=== PATIENT | male | born 1980 | race Caucasian/White ===

== ENCOUNTER 2016-09-12 12:18 | Emergency (ER) | payer SELFPAY ==
[2016-09-12 12:35] VITALS: BP 136/84
[2016-09-12] MEDS ORDERED: CYCL10TA2 PO (13:12)
--- NOTE | 2016-09-12 13:12 | PHYS DOC ---
Past Medical History Past Medical History: Other Additional Past Medical Histor: chronic back pain, hypoglyceimia Past Surgical History: Other Additional Past Surgical Histo: Arm Alcohol Use: None Drug Use: None Adult General Chief Complaint Chief Complaint: LOWER BACK PAIN OR INJURY [facility] HPI Patient is a 36 year old male since emergency department stating that he tweaked his back 2 days ago. Patient states that he was moving a refrigerator for friend and he felt something pull in his back. Patient states that he had seen his primary care physician on Thursday for the back pain and discomfort. He states the primary care physician gave him a steroid injection and provided him with hydrocodone. Patient states the pain has become worse and radiates down into his leg. Patient states that he drove himself here to the emergency department. Patient states that he has numbness and tingling down to his right leg. He states that he has increased pain with trying to sit. He states he has not taken any ibuprofen nor has he placed any ice packs on the area. Patient states that he was at his primary care physician today and they sent him here to have an MRI completed. Patient denies any loss of bowel or bladder. Review of Systems Review of Systems Constitutional: Denies fever or chills [] Eyes: Denies change in visual acuity, redness, or eye pain [] HENT: Denies nasal congestion or sore throat [] Respiratory: Denies cough or shortness of breath [] Cardiovascular: No additional information not addressed in HPI [] GI: Denies abdominal pain, nausea, vomiting, bloody stools or diarrhea [] : Denies dysuria or hematuria [] Musculoskeletal: right lower back pain denies joint pain Integument: Denies rash or skin lesions [] Neurologic: Denies headache, focal weakness or sensory changes [] Endocrine: Denies polyuria or polydipsia [] Allergies Allergies Allergies Coded Allergies Type Severity Reaction Last Updated Verified latex Allergy Unknown 11/03/14 No Physical Exam Physical Exam Constitutional: Well developed, well nourished, no acute distress, non-toxic appearance. [] HENT: Normocephalic, atraumatic, bilateral external ears normal, oropharynx moist, no oral exudates, nose normal. [] Eyes: PERRLA, EOMI, conjunctiva normal, no discharge. [] Neck: Normal range of motion, no tenderness, supple, no stridor. [] Cardiovascular:Heart rate regular rhythm, no murmur [] Lungs & Thorax: Bilateral breath sounds clear to auscultation [] Abdomen: Bowel sounds normal, soft, no tenderness, no masses, no pulsatile masses. [] Skin: Warm, dry, no erythema, no rash. [] Back: No thoracic, no lumbar spine tenderness noted. No crepitus no deformities and no step-offs noted. Patient did have tenderness right lower back area.] Extremities: No tenderness, no cyanosis, no clubbing, ROM intact, no edema. Peripheral pulses 2+. Patient with good strength in both extremities. Patient able to ambulate with a good steady gait. Neurologic: Alert and oriented X 3, normal motor function, normal sensory function, no focal deficits noted. [] Psychologic: Affect normal, judgement normal, mood normal. [] Current Patient Data Vital Signs Vital Signs Date Time Temp Pulse Resp B/P (MAP) Pulse Ox O2 Delivery O2 Flow Rate FiO2 09/12/16 12:35 98.1 102 20 93 Room Air 98.1 EKG EKG [] Radiology/Procedures Radiology/Procedures [] Course & Med Decision Making Course & Med Decision Making Pertinent Labs and Imaging studies reviewed. (See chart for details) Patient will be discharged home with Flexeril which she was instructed will cause drowsiness do not take sleepy alert and oriented. Patient will be instructed to use ibuprofen 800 mg every 8 hours with food stop taking few develop an upset stomach. Patient has hydrocodone at home in which she can use for severe pain and discomfort. Recommended ice packs on 20 minutes off 20 minutes several times a day. Also recommended following back up with her primary care physician to provide physical therapy recommendations. Patient will be discharged home in stable condition. Signs and symptoms to return back to emergency department as been provided. [] Dragon Disclaimer Dragon Disclaimer This electronic medical record was generated, in whole or in part, using a voice recognition dictation system. Departure Departure Impression: Primary Impression: Lower back pain Disposition: 01 HOME, SELF-CARE Condition: STABLE Referrals: JOSÉ MIGUEL CHRIS MD (PCP) Patient Instructions: Back Pain, Adult, [id number] Additional Instructions: You have been evaluated for your back pain. No x-rays were needed as she did not have pain or discomfort on the spinal column. Ibuprofen 800 mg every 8 hours with food stop taking few develop an upset stomach. Ice packs on 20 minutes off 20 minutes several times today. Flexeril will cause drowsiness do not take any be alert and oriented. Followup with your primary care provider in 3-5 days Return to emergency department as needed for signs and symptoms that become worse. Scripts Cyclobenzaprine Hcl (CYCLOBENZAPRINE HCL) 10 Mg Tablet 10 MG PO TID, #30 TAB Prov: KAMRAN BARRETT APRN 09/12/16 KAMRAN BARRETT APRN Sep 12, 2016 13:12
== END 2016-09-12 13:19 | disposition home or self-care (01) ==
LOC: ER 12:18
DX: M54.5 Low back pain (principal); G89.29 Other chronic pain; R20.0 Anesthesia of skin; R20.2 Paresthesia of skin; Z91.040 Latex allergy status
CPT/HCPCS: 99283

== ENCOUNTER → 2016-09-25 | Outpatient (CLI) | payer BC ==
[2016-09-12 12:35] VITALS: BP 136/84
[~2016-09-25] MED LIST: CYCL10TA2 PO; CYCL5TAB PO; DOCU-109 PO; OXYC-323 PO
[2016-09-25 14:16] LABS: BASO # 0.1 x10^3/uL (0.0-0.2); BASO % 2 % (0-3); EOS % 2 % (0-3); HEMOGLOBIN 15.3 g/dL (13.0-17.5); LYMPH # 2.2 x10^3/uL (1.0-4.8); LYMPH % 38 % (24-48); MEAN CORPUSCULAR HEMOGLOBIN 31 pg (25-35); MEAN CORPUSCULAR HGB CONC 34 g/dL (31-37); MEAN CORPUSCULAR VOLUME 90 fL (79-100); MONO % 8 % (0-9); NEUT % 51 % (31-73); PLATELET COUNT 228 x10^3/uL (140-400); RED CELL DISTRIBUTION WIDTH 13.3 % (11.5-14.5); WHITE BLOOD COUNT 5.9 x10^3/uL (4.0-11.0)
[2016-09-25 14:20] LABS: ALBUMIN 4.4 g/dL (3.4-5.0); ALBUMIN/GLOBULIN RATIO 1.3 (1.0-1.7); CALCIUM 9.5 mg/dL (8.5-10.1); CREATININE 1.1 mg/dL (0.7-1.3); GFR 76.2; POTASSIUM 4.5 mmol/L (3.5-5.1); TOTAL BILIRUBIN 0.6 mg/dL (0.2-1.0); TOTAL PROTEIN 7.8 g/dL (6.4-8.2)
== END | disposition home or self-care (01) ==
LOC: SURGPAT 13:32
PROVIDERS: ATTEND Neurological Surgery
DX: Z01.818 Encounter for other preprocedural examination (principal)
CPT/HCPCS: 36415; 80053; 85027; 87641

== ENCOUNTER 2016-09-26 09:50 | Day surgery (SDC) | payer BC ==
--- NOTE | 2016-09-25 17:23 | HP ---
ADMIT DATE: 09/26/2016 PREOPERATIVE HISTORY AND PHYSICAL DATE OF SURGERY: 09/26/2016. James Medina dictating for Dr. Geronimo Ruvalcaba. HISTORY OF PRESENT ILLNESS: The patient is a pleasant 36-year-old who is having difficulty with low back pain and pain which radiates into his right hip, right posterolateral thigh, leg and foot. He says his right leg feels numb. The problem began 3 weeks ago after moving a refrigerator. He says his pain is a 10/10. He has been off work for 2 weeks. His pain is constant. He says that the problem is worse with sitting, standing or walking. He says he gets minimal relief with lying down flat with a pillow under his back. He has been taking hydrocodone, Motrin, and Tylenol, which he says are not helping him significantly. PAST MEDICAL HISTORY: Hypoglycemia and back pain. PAST SURGICAL HISTORY: Right arm nerve surgery 10 years ago. FAMILY HISTORY: Diabetes, hypertension, migraine, spine problems. SOCIAL HISTORY: He is a current smoker. He smokes a pack a day. He is employed. ALLERGIES: . CURRENT MEDICATIONS: [place], Motrin and Tylenol. REVIEW OF SYSTEMS: A 12-point review of systems was obtained and is noncontributory except for that mentioned above. PHYSICAL EXAMINATION: NEUROSURGERY EXAMINATION: GENERAL APPEARANCE: Alert, in distress related to back and right leg pain. He had to stand for most of the interview, when sitting he was leaning to the left. HEAD: Normocephalic and atraumatic. SKIN: Warm and dry. MUSCULOSKELETAL: Lumbar paraspinal muscle bulk is normal, restricted range of motion of lumbar spine, [id number] tenderness of lower lumbar spine with palpation, normal range of motion of the lower extremities bilaterally. EXTREMITIES: No clubbing, cyanosis, or edema. NEUROLOGIC: Alert and oriented x 3, normal recent and remote memory, strength 5/5 in bilateral lower extremities, sensory was intact to light touch in the bilateral lower extremities except decreased sensation in the right S1 distribution, reflexes were present and symmetric in lower extremities bilaterally except for an absent right ankle jerk, positive straight leg raising on the right at 5 degrees, positive crossed leg raising on the left at 5 degrees, antalgic gait. IMAGING: Reviewed. I reviewed a lumbar MRI scan. There is a large right-sided extruded disk with compression of the right S1 nerve root. ASSESSMENT: Intervertebral disk disorders with radiculopathy, lumbosacral region. PLAN: He has a large herniated disk at L5-S1 on the right with nerve root compression. His pain is severe with neurologic changes on exam. I recommended a lumbar microdiskectomy at L5-S1 on the right. I spoke with him about the surgery including the technique, risks, and expected postoperative course. He understands and would like to proceed. We will make the arrangements. GERONIMO RUVALCABA MD DR: ARIS/pranav JOB#: [id number] / [id number]
[~2016-09-26 09:50] MED LIST changes: +BACITRACIN 50,000 UNIT in IV NORMAL SALINE 1000ML BAG 1,000 ML IRR ONE; +BUPIVACAINE-EPI 0.25%-1:200000 MPF 30 ML VIAL. ONE; -CYCL5TAB PO; -DOCU-109 PO; +GELATIN SPONGE SIZE 100. ONE; +HYDROmorphone 2 MG/ML VIAL IV PRN; +IV RINGERS,LACTATED 1000ML 1,000 ML IV SCH; +KETOROLAC 60 MG/2 ML INJ FOR OR. ONE; +LIDOCAINE 1% 1 ML SYRINGE. ID PRN; +MEPERIDINE PF 25 MG/ML VIAL. IV PRN; +MIDAZOLAM HCL/PF 2 MG/2 ML VIAL. IV PRN; +MORPHINE SULFATE 4 MG/ML DISP.SYRIN. IV PRN; +PROCHLORPERAZINE 10 MG/2 ML VIAL. IV PRN; +THROMBIN TOPICAL 20,000 UNIT SPRAY.SYRN KIT TP ONE; +diphenhydrAMINE 50 MG/ML VIAL IV PRN; +fentaNYL PF VIAL 100 MCG/2 ML VIAL IV PRN
[2016-09-26] MEDS ORDERED: ROCURONIUM 50 MG/5 ML VIAL. ONE (10:23)
[2016-09-26] MEDS ORDERED: DEXAMETHASONE SOD PHOS 20 MG/5 ML VIAL. ONE (10:24)
[2016-09-26] MEDS ORDERED: PROPOFOL 20 ML IV ONE (10:24)
[2016-09-26] MEDS ORDERED: ePHEDrine PF IN SALINE 50 MG/5 ML DISP.SYRIN IV ONE (10:24)
[2016-09-26] MEDS ORDERED: LIDOCAINE 2% PF Vial for OR 5 ML VIAL. ONE (10:24)
[2016-09-26] MEDS ORDERED: ONDANSETRON PF 4 MG/2 ML VIAL. ONE (10:24)
[2016-09-26] MEDS ORDERED: MIDAZOLAM HCL/PF 2 MG/2 ML VIAL. ONE (10:25)
[2016-09-26] MEDS ORDERED: fentaNYL PF VIAL 100 MCG/2 ML VIAL ONE (10:26)
[2016-09-26] MEDS ORDERED: REMIFENTANIL 2 MG VIAL. IV ONE (10:26)
[2016-09-26] MEDS ORDERED: PROPOFOL 50 ML IV ONE ×2 (10:26→13:17)
[2016-09-26] MEDS ORDERED: PROCHLORPERAZINE 10 MG/2 ML VIAL. IV PRN (11:30)
[2016-09-26] MEDS ORDERED: MORPHINE SULFATE 4 MG/ML DISP.SYRIN. IV PRN (11:30)
[2016-09-26] MEDS ORDERED: fentaNYL PF VIAL 100 MCG/2 ML VIAL IV PRN (11:45)
[2016-09-26] MEDS ORDERED: diphenhydrAMINE 50 MG/ML VIAL IV PRN (11:45)
[2016-09-26] MEDS ORDERED: GLYCOPYRROLATE 1 MG/5 ML VIAL. ONE (12:23)
[2016-09-26] MEDS ORDERED: NEOSTIGMINE METHYLSULFATE 5 MG/5 ML SYRINGE. ONE (12:23)
[2016-09-26] MEDS ORDERED: DESFLURANE > 120 MINUTES IH ONE (12:57)
--- NOTE | 2016-09-26 13:52 | DISCH ---
DISCHARGE INSTRUCTIONS Condition on Discharge Condition on Discharge: Stable Activity After Discharge Activity Instructions for Disc: Activity as tolerated, Avoid exertion Other activity instructions: no driving for a week Bathing Instructions: Shower-keep dressing dry Lifting Instructions after Dis: No heavy lifting, No pulling or pushing Driving Instructions after Dis: Do not drive Diet after Discharge Additional Diet Restrictions: resume home diet Wound Incision Care Wound/Incision Care: Ice to area for comfort Other wound/incision instructi: may remove dressing in 48 hrs if dry then may shower- no soaking Contacting the after DC Call your doctor for: Concerns you may have Follow-Up Follow up with: Dr. Ruvalcaba's nurse in 2 weeks [phone] MENA RUVALCABA MD Sep 26, 2016 13:52
[2016-09-26] MEDS ORDERED: DOCU-109 PO (13:56)
[2016-09-26] MEDS: fentaNYL PF VIAL 100 MCG/2 ML VIAL IV PRN ×2 (14:07→14:12)
[2016-09-26] MEDS ORDERED: CYCL5TAB PO (14:15)
[2016-09-26] MEDS ORDERED: CYCL10TA2 PO (14:21)
[2016-09-26] MEDS ORDERED: oxyCODONE/APAP 5/325 1 TAB TABLET PO PRN (14:45)
[2016-09-26 15:00] VITALS: BP 118/65
--- NOTE | 2016-09-26 18:14 | OP ---
DATE OF SURGERY: 09/26/2016 PREOPERATIVE DIAGNOSES: Herniated lumbar disk at L5-S1, right, with severe lumbar radiculopathy. POSTOPERATIVE DIAGNOSIS: Herniated lumbar disk at L5-S1, right, with severe lumbar radiculopathy. OPERATION PERFORMED: Hemilaminotomy and microdiskectomy at L5-S1, right, with removal of large extruded fragment and decompression of dura and nerve root. The operation was done with EMG monitoring, fluoroscopy, and microscopic dissection. REVIEW SPECIALIST: CARRILLO Loya, assisted with surgery, assisted with the exposure, the microdiskectomy as well as the closure. OPERATIVE INDICATIONS: The patient is a pleasant 36-year-old who developed acute, intractable, extremely severe back and right leg pain which was incapacitating for him. He had marked findings on examination, and after reviewing the MRI, I recommended lumbar microsurgery. I spoke with him about the operation, the risks, the technique, and he wished to go ahead. DESCRIPTION OF PROCEDURE: Following general endotracheal anesthesia, the patient was positioned prone on the Dick frame. His lumbar region was prepped and draped in the standard fashion. DEJON hose and AV impulse boots were applied for DVT prophylaxis. A microscope was draped. Fluoroscopy was draped and brought into field. Monitoring was established. Ancef 2 g was given less than 1 hour prior to the initiation of surgery. Using fluoroscopic guidance, a midline incision was made directly over the L5-S1 interspace. I dissected down through the skin and subcutaneous tissue, reflected the paraspinal muscles, and placed a Excello micro disk retractor, brought in the microscope. Using the high-speed air drill and microscopic technique, I gently burred down a large hemilaminotomy and carried this farther laterally than usual to be sure that the region was very well exposed. I then gently grasped and peeled away the ligamentum flavum for partial foraminotomy and visualized the dura and the exiting S1 root. The root was somewhat more medially positioned, coming off the dura and lifted up, and appeared stretched over a large disk fragment. I was able to visualize the disk without touching the nerve, and I gently made a small opening in the ligament annulus, and I pulled back and removed two moderate disk fragments, and the region became better decompressed. I then used a micro nerve root retractor and freed the nerve root more fully and carried more medially with a micro nerve root retractor. I then performed a generous diskectomy with pituitary rongeurs. I worked inferiorly and enlarged the hemilaminotomy and explored carefully and assured myself. The root was very well decompressed as well as the dura. During the operation, I used the bipolar cautery to maintain excellent hemostasis as well as the judicious use of the bone wax. At this point, then I irrigated again. I removed the retractor, obtained hemostasis in the muscle, and then I closed the wound in layers with absorbable suture. Skin was closed with 4-0 subcuticular stitch. The operation went very well, and the patient left the Operating Room in excellent condition. I was quite pleased with the surgery. MENA RUVALCABA MD DR: ARIS/pranav JOB#: [id number] / [id number]
--- NOTE | 2016-09-29 13:38 | PATHOLOGY ---
PATHOLOGY REPORT * * * * * * * * FINAL DIAGNOSIS: Segments of fibrocartilaginous, fibroadipose, and skeletal muscle tissue and bone, lumbar disc and decompression: - Degenerative changes of fibrocartilaginous tissue. COMMENT: There is no evidence of an acute inflammatory process or malignancy. (JPM:; d/t: 09/29/2016) REPORT ELECTRONICALLY SIGNED BY: Anurag Torres M.D. DATE/TIME: 09/29/2016 13:38 * * * * * * * * GROSS PATHOLOGY: Received in formalin labeled "Cesar Ya, lumbar disc and decompression" are multiple segments of keyes, rubbery, and gritty tissue admixed with bone. The specimen measures 2.5. x 2.0 x 0.8 cm in aggregate dimensions. The tissue is submitted representatively in cassette A1, following decalcification. (SHA; 09/26/16) INITIAL CPT CODE(S): A; 58912, 82063 Professional services performed by [facility] [place] [address] Technical services performed by [facility] at [address] [place] [address] [address], [place] [address]. SPECIMEN(S) RECEIVED: A.Lumbar disc and decompression CLINICAL HISTORY: Lumbar herniated disc PATIENT: CESAR YA /AGE: 901/02/1980 (Age: 36) PATIENT #: [id number] ALT CASE #: SPECIMEN COLLECTION DATE: 09/26/2016 SPECIMEN RECEIVED DATE: 09/26/2016 [facility] - [address] [place] [address] - PHONE: [phone] * * * END OF REPORT * * *
== END 2016-09-26 15:43 | disposition home or self-care (01) ==
LOC: SURG 09:50
PROVIDERS: ATTEND Neurological Surgery
DX: M51.16 Intervertebral disc disorders with radiculopathy, lumbar region (principal); K21.9 Gastro-esophageal reflux disease without esophagitis; E16.2 Hypoglycemia, unspecified; F41.9 Anxiety disorder, unspecified; F17.200 Nicotine dependence, unspecified, uncomplicated; Z87.39 Personal history of other diseases of the musculoskeletal system and connective tissue; Z86.39 Personal history of other endocrine, nutritional and metabolic disease; Z72.0 Tobacco use; Z88.1 Allergy status to other antibiotic agents; Z91.040 Latex allergy status
CPT/HCPCS: 36415; 63030; 76000; 97162; 97530; G8978; G8979; G8980; J0690; J1100; J1885; J2250; J2405; J2704; J2710; J3010; J3490; J7030